=== PATIENT | female | born 1980 | race African-American/Black ===

== ENCOUNTER 2020-09-29 06:20 | Inpatient (IN) | payer BC ==
[2020-09-29] MEDS: ELECTROLYTE-148 SOLN 1,000 ML IV SCH (07:30)
[2020-09-29 07:37] VITALS: BMI 33.4
[2020-09-29] MEDS ORDERED: ONDANSETRON 4 MG/2 ML VIAL IVPUSH PRN (07:46)
[2020-09-29] MEDS ORDERED: morphine SULFATE/PF 0.5 MG/ML (2cc Syringe - QUVA) EP ONE (07:46)
[2020-09-29] MEDS ORDERED: ELECTROLYTE-148 SOLN 500 ML IV ONE (07:56)
[2020-09-29] MEDS ORDERED: CITRIC ACID/SODIUM CITRATE 30 ML UNIT-DOSE CUP PO ONE (07:56)
[2020-09-29] MEDS ORDERED: morphine SULFATE/PF 0.5 MG/ML (2cc Syringe - QUVA) ONE (08:16)
[2020-09-29] MEDS ORDERED: ceFAZolin SODIUM 1 GM VIAL ONE (08:21)
[2020-09-29] MEDS ORDERED: ePHEDrine SULFATE 50 MG/1 ML AMPULE ONE (08:35)
[2020-09-29] MEDS ORDERED: OXYTOCIN 10 UNITS/ML VIAL ONE ×2 (08:41→09:00)
[2020-09-29] MEDS ORDERED: IBUPROFEN 800 MG/8 ML IJ IVPB PRN (09:36)
[2020-09-29] MEDS ORDERED: METHYLERGONOVINE MALEATE 0.2 MG/1 ML AMP IM PRN (09:36)
[2020-09-29] MEDS ORDERED: oxyCODONE HCL 5 MG TABLET PO PRN (09:36)
[2020-09-29] MEDS ORDERED: OXYTOCIN 20 UNITS in 0.9% NS 20 UNIT/1,000 ML INFUS.BAG IV ONE (10:23)
[2020-09-29] MEDS: OXYTOCIN 20 UNITS in 0.9% NS 20 UNIT/1,000 ML INFUS.BAG IV SCH (10:25)
[2020-09-29] MEDS: PRENATAL VITAMINS W/ FOLIC ACID TABLET (FP) PO SCH (10:26)
[2020-09-30] MEDS: SIMETHICONE 80 MG TAB.CHEW (FP) PO PRN ×4 (02:52→22:23)
[2020-09-30] MEDS: IBUPROFEN 600 MG TABLET (FP) PO PRN ×4 (02:52→22:29)
[2020-09-30] MEDS: ACETAMINOPHEN 325 MG TABLET (FP) PO PRN ×3 (02:53→17:46)
[2020-09-30 08:49] LABS: BASO % 0.4 % (0-2.0); EOS % 0.8 % (0-4.5); HEMATOCRIT 26.8 % (32.4-45.2); HEMOGLOBIN 9.5 GM/dL (10.7-15.3); LYMPH % 16.2 % (8-40); MCH 32.7 pg (25.7-33.7); MCHC 35.6 g/dl (32.0-36.0); MEAN CELL VOLUME 91.6 fl (80-96); MEAN PLT VOLUME 8.1 fl (7.5-11.1); MONO % 6.3 % (3.8-10.2); NEUT % 76.3 % (42.8-82.8); PLATELET COUNT 134 K/MM3 (134-434); RBC 2.92 M/mm3 (3.60-5.2); RDW 13.6 % (11.6-15.6); WHITE BLOOD COUNT 7.7 K/mm3 (4.0-10.0)
[2020-09-30] MEDS: ELECTROLYTE-148 SOLN 1,000 ML IV SCH (08:57)
[2020-09-30] MEDS: PRENATAL VITAMINS W/ FOLIC ACID TABLET (FP) PO SCH (08:59)
[2020-09-30] MEDS ORDERED: BISACODYL 10 MG SUPP.RECT RC PRN (09:36)
[2020-09-30] MEDS: OXYTOCIN 20 UNITS in 0.9% NS 20 UNIT/1,000 ML INFUS.BAG IV SCH (10:02)
[2020-09-30] MEDS: SENNOSIDES/DOCUSATE COMBO (SENNA PLUS) TABLET (UD) PO PRN (22:23)
[2020-09-30] MEDS: oxyCODONE HCL 5 MG TABLET PO PRN (22:30)
[2020-10-01] MEDS: IBUPROFEN 600 MG TABLET (FP) PO PRN ×4 (04:12→22:34)
[2020-10-01] MEDS: SIMETHICONE 80 MG TAB.CHEW (FP) PO PRN ×4 (04:12→22:33)
[2020-10-01] MEDS: oxyCODONE HCL 5 MG TABLET PO PRN ×3 (04:14→13:41)
[2020-10-01] MEDS: ELECTROLYTE-148 SOLN 1,000 ML IV SCH (09:08)
[2020-10-01] MEDS: PRENATAL VITAMINS W/ FOLIC ACID TABLET (FP) PO SCH (09:08)
[2020-10-01] MEDS: SENNOSIDES/DOCUSATE COMBO (SENNA PLUS) TABLET (UD) PO PRN (22:34)
[2020-10-01] MEDS: ACETAMINOPHEN 325 MG TABLET (FP) PO PRN (22:35)
[2020-10-02 09:16] VITALS: BP 132/80; PULSE 97; TEMP 99.1
[2020-10-02] MEDS: IBUPROFEN 600 MG TABLET (FP) PO PRN (09:32)
[2020-10-02] MEDS: ACETAMINOPHEN 325 MG TABLET (FP) PO PRN (09:32)
[2020-10-02] MEDS: SIMETHICONE 80 MG TAB.CHEW (FP) PO PRN (09:32)
[2020-10-02] MEDS: PRENATAL VITAMINS W/ FOLIC ACID TABLET (FP) PO SCH (09:33)
== END 2020-10-02 12:20 | disposition home or self-care (01) | DRG 788 ==
LOC: JLDR 06:20 → J3W 11:15
PROVIDERS: ADMIT Obstetrics & Gynecology; ATTEND Obstetrics & Gynecology
PROC: 10D00Z1 Extraction of Products of Conception, Low, Open Approach (ICD-10-PCS; principal; 2020-09-29)
DX: O34.211 Maternal care for low transverse scar from previous cesarean delivery (principal); Z3A.39 39 weeks gestation of pregnancy; Z37.0 Single live birth
CPT/HCPCS: 36415; 85025; 88307-TC